=== PATIENT | female | born 1945 | race Caucasian/White ===

== ENCOUNTER 2016-08-15 22:59 | Inpatient (IN) | payer OTHER ==
[~2016-08-15] VITALS: Ht 167.6 cm; Wt 97.5 kg
[2016-08-15 23:06] VITALS: Ht 167.6 cm; Wt 97.5 kg
[2016-08-16] MEDS ORDERED: SOD CHLORIDE 0.9% 500 ML IV STA (00:54)
[2016-08-16] MEDS ORDERED: ONDANSETRON 4 MG INJ IV STA (00:54)
[2016-08-16] MEDS ORDERED: morphine 4 MG/ML VIAL IV STA (00:54)
--- NOTE | 2016-08-16 01:50 | RADRPT ---
PROCEDURE: Abdominal ultrasound, limited. CLINICAL INDICATION: Abdominal pain. TECHNIQUE: Multiple real-time images were acquired of the patient's right upper abdomen utilizing a high resolution transducer. COMPARISON: None FINDINGS: The liver demonstrates increased echogenicity and size measuring 19.7 cm. There is no focal mass or intrahepatic biliary ductal dilatation. The portal vein is patent. The gallbladder is not distend ed. Multiple echogenic gallstones are identified. There is no pericholecystic fluid or gallbladder wall thickening. The common bile duct measures 7.2 mm in maximal dimension. The pancreas is obscu red by overlying bowel gas. No free fluid is identified. The right kidney is normal size and echogenicity measuring cm. There is no focal renal mass or ech ogenic calculus identified. There is no obstructive uropathy. IMPRESSION: Cholelithiasis without ultrasound evidence of cholecystitis. Enlarged liver with fatty infiltration. Mildly dilated common bile duct measuring 7.2 mm. Pancreas obscured by overlying bowel gas. .Deepak Marks MD, Date Time Electronically viewed and signed by .Deepak Marks MD, on 08/16/2016 01:49 .T/
[2016-08-16 02:12] LABS: ADD SCAN DIFF NO
[2016-08-16 02:14] LABS: BASOPHILS % 0.3 % (0.0-2.0); EOSINOPHILS # 0.4 10^3/ul (0.0-0.5); EOSINOPHILS % 4.3 % (0.0-7.0); HEMATOCRIT 44.3 % (37.0-47.0); LYMPHOCYTES # 2.8 10^3/ul (0.8-2.9); LYMPHOCYTES % 29.9 % (15.0-51.0); MEAN CORPUSCULAR HEMOGLOBIN 28.2 pg (29.0-33.0); MEAN CORPUSCULAR HGB CONC 31.6 g/dl (32.0-37.0); MEAN CORPUSCULAR VOLUME 89.1 fl (82.0-101.0); MEAN PLATELET VOLUME 10.1 fl (7.4-10.4); MONOCYTE # 0.8 10^3/ul (0.3-0.9); MONOCYTES % 8.1 % (0.0-11.0); NEUTROPHIL # 5.4 10^3/ul (1.6-7.5); NEUTROPHILS % 57.1 % (39.0-77.0); PLATELET COUNT 308 10^3/UL (140-415); RED BLOOD COUNT 4.97 10^6/ul (4.20-5.40); RED CELL DISTRIBUTION WIDTH 12.8 % (11.5-14.5); WHITE BLOOD COUNT 9.4 10^3/ul (4.8-10.8)
[2016-08-16 02:25] LABS: URINE BILIRUBIN (Dip) NEGATIVE (NEGATIVE); URINE COLOR LT. YELLOW (YELLOW); URINE GLUCOSE (Dip) NEGATIVE (NEGATIVE); URINE KETONES (Dip) NEGATIVE (NEGATIVE); URINE LEUKOCYTE ESTERASE (Dip) NEGATIVE (NEGATIVE); URINE NITRITE (Dip) NEGATIVE (NEGATIVE); URINE TOTAL PROTEIN (Dip) NEGATIVE (NEGATIVE); URINE UROBILINOGEN (Dip) 0.2 E.U./dL (0.1-1.0)
[2016-08-16 02:26] LABS: ADD UMIC NO; URINE BLOOD (Dip) NEGATIVE (NEGATIVE)
[2016-08-16 02:27] LABS: ALBUMIN 4.1 g/dl (3.3-4.9)
[2016-08-16 02:28] LABS: POTASSIUM 4.2 mmol/L (3.5-5.1)
[2016-08-16 02:30] LABS: ALBUMIN/GLOBULIN RATIO 0.97; BILIRUBIN,INDIRECT 0.2 mg/dl (0-1.1); BILIRUBIN,TOTAL 0.2 mg/dl (0.2-1.3); CREATININE 1.06 mg/dl (0.44-1.00); TOTAL PROTEIN 8.3 g/dl (6.1-8.1)
[2016-08-16 02:31] LABS: CALCIUM 9.2 mg/dl (8.4-10.2)
--- NOTE | 2016-08-16 02:43 | ERA ---
ER Documentation Chief Complaint Date/Time DATE: 08/16/16 TIME: 02:42 Chief Complaint RUQ abd pain x 3 days HPI This is a 71-year-old female comes in with right upper quadrant pain for 3 days. Pain is mild to moderate intensity. Patient has history of gallstones. Mild associated nausea. No vomiting. No other current complaints. ROS All systems reviewed and are negative except as per history of present illness. Allergies Allergies: Coded Allergies: No Known Allergy (Unverified , 08/15/16) PMhx/Soc History of Surgery: Yes (Rt knee replacement, 3 stent placed X20 yrs ago, appendectomy) Anesthesia Reaction: No Hx Neurological Disorder: No Hx Respiratory Disorders: No Hx Cardiac Disorders: Yes (HTN, high cholesterol) Hx Psychiatric Problems: No Hx Miscellaneous Medical Probl: Yes (total hysterectomy,gallstones,depression) Hx Alcohol Use: No Hx Substance Use: No Hx Tobacco Use: No Smoking Status: Never smoker Physical Exam Vitals Vital Signs Date Time Temp Pulse Resp B/P Pulse Ox O2 Delivery O2 Flow Rate FiO2 08/16/16 01:27 67 20 133/66 97 Room Air 08/15/16 23:06 98.3 88 20 166/77 100 Physical Exam Const: [] Head: Atraumatic Eyes: Normal Conjunctiva ENT: Normal External Ears, Nose and Mouth. Neck: Full range of motion..~ No meningismus. Resp: Clear to auscultation bilaterally Cardio: Regular rate and rhythm, no murmurs Abd: Soft, non tender, non distended. Normal bowel sounds Skin: No petechiae or rashes Back: No midline or flank tenderness Ext: No cyanosis, or edema Neur: Awake and alert Psych: Normal Mood and Affect Result Diagram: 08/16/16 0204 08/16/16 0204 Results 24 hrs Laboratory Tests Test 08/16/16 01:49 08/16/16 02:04 Urine Color LT. YELLOW Urine Clarity CLEAR Urine pH 5.5 Urine Specific [place] 1.020 Urine Ketones NEGATIVE Urine Nitrite NEGATIVE Urine Bilirubin NEGATIVE Urine Urobilinogen 0.2 E.U./dL Urine Leukocyte Esterase NEGATIVE Urine Hemoglobin NEGATIVE Urine Glucose NEGATIVE% Urine Total Protein NEGATIVE White Blood Count 9.410^3/ul Red Blood Count 4.9710^6/ul Hemoglobin 14.0g/dl Hematocrit 44.3% Mean Corpuscular Volume 89.1fl Mean Corpuscular Hemoglobin 28.2pg Mean Corpuscular Hemoglobin Concent 31.6g/dl Red Cell Distribution Width 12.8% Platelet Count 31269^3/UL Mean Platelet Volume 10.1fl Neutrophils % 57.1% Lymphocytes % 29.9% Monocytes % 8.1% Eosinophils % 4.3% Basophils % 0.3% Nucleated Red Blood Cells % 0.0/100WBC Neutrophils # 5.410^3/ul Lymphocytes # 2.810^3/ul Monocytes # 0.810^3/ul Eosinophils # 0.410^3/ul Basophils # 0.010^3/ul Nucleated Red Blood Cells # 0.010^3/ul Sodium Level 139mmol/L Potassium Level 4.2mmol/L Chloride Level 99mmol/L Carbon Dioxide Level Pending Anion Gap Pending Blood Urea Nitrogen Pending Creatinine Pending Glucose Level Pending Calcium Level Pending Total Bilirubin Pending Direct Bilirubin Pending Indirect Bilirubin Pending Aspartate Amino Transf (AST/SGOT) Pending Alanine Aminotransferase (ALT/SGPT) Pending Alkaline Phosphatase Pending Total Protein Pending Albumin 4.1g/dl Globulin Pending Albumin/Globulin Ratio Pending Lipase Pending Current Medications Medications (Trade) Dose Ordered Sig/Dayo Route PRN Reason Start Time Stop Time Status Last Admin Dose Admin Sodium Chloride (NS) 500 ml @ 500 mls/hr Q1H STAT IV 08/16/16 00:54 08/16/16 01:53 DC 08/16/16 01:59 Morphine Sulfate (morphine) 4 mg ONCE STAT IV 08/16/16 00:54 08/16/16 00:56 DC 08/16/16 01:59 Ondansetron HCl (Zofran Inj) 4 mg ONCE STAT IV 08/16/16 00:54 08/16/16 00:56 DC 08/16/16 01:58 Procedures/MDM Medical decision-making: Patient has evidence of early acute cholecystitis. She will be admitted to Dr. Alvarez. Dr. Zhou it is on-call for surgery and has been consulted Departure Diagnosis: Primary Impression: Acute cholecystitis Condition: Serious VENKAT ALLANTatiana Aug 16, 2016 02:43
[2016-08-16] MEDS ORDERED: morphine 10 MG INJ IM PRN (06:30)
[2016-08-16] MEDS ORDERED: ONDANSETRON 4 MG INJ IV PRN (06:30)
[2016-08-16] MEDS ORDERED: morphine 10 MG INJ IV PRN ×2 (07:00→07:30)
[2016-08-16] MEDS: morphine 2 MG INJ IV PRN ×2 (07:39→21:25)
[2016-08-16 08:45] LABS: AMYLASE 82 U/L (11-123)
[2016-08-16] MEDS ORDERED: NACL 0.9% 3 ML SYG IV SCH (10:00)
[2016-08-16] MEDS ORDERED: MAGNESIUM HYDROXIDE 30ML CUP PO PRN (10:00)
[2016-08-16] MEDS ORDERED: ACETAMINOPHEN 325 MG TAB PO PRN (10:00)
[2016-08-16] MEDS ORDERED: DOCUSATE SODIUM 100 MG CAP PO PRN (10:00)
[2016-08-16] MEDS ORDERED: ATENOLOL 50 MG TAB PO SCH (10:00)
[2016-08-16] MEDS ORDERED: BISACODYL 10 MG SUPP PR PRN (10:00)
[2016-08-16 10:03] LABS: CHOL/HDL RATIO 3.9 RATIO
--- NOTE | 2016-08-16 10:16 | RADRPT ---
Echocardiogram Report Patient Name: MEHRAN JI Gender: Female Date: 1945 Study Date: 16-Aug-2016 Geographic Area Intelligence Officer: Maya Charles [facility] Physician: SHAHRZAD VALENTIN Quality: Good Procedures: Transthoracic echocardiogram with complete 2D, M-Mode, and doppler examination. Indications: Pre-op. 2D/M Mode Doppler Measurement Value Normal Ranges Measurement Value Normal Ranges LVIDd 2D 4.8 3.5 - 5.6 cm AV Peak Selvin 1.3 m/sec LVIDs 2D 2.7 2.1 - 4.1 cm AV Peak PG 6.7 mmHg LVPWd 2D 1.1 0.6 - 1.1 cm LVOT Peak Selvin 1.0 m/sec IVSd 2D 1.1 0.6 - 1.1 cm LVOT Peak PG 3.8 mmHg AoR Diam 2D 2.0 2.0 - 3.7 cm MV E Peak Selvin 0.8 m/sec EDV 2D 107.7 cm3 MV A Peak Selvin 0.6 m/sec ESV 2D 20.7 cm3 MV E/A 1.3 LA Dimen 2D 2.7 2.3 - 4.0 cm MV Decel Time 174 msec MV Decel Pierce 4 MV E/A 1.3 TR Peak Selvin 2.4 m/sec TR Peak PG 23.8 mmHg RVSP 27.0 mmHg Findings Left Ventricle: Normal left ventricular systolic function. Normal left ventricular cavity size. Normal left ventricular wall thickness. Ejection fraction is visually estimated at 65 %. Right Ventricle: Normal right ventricular size. Normal right ventricular systolic function. Left Atrium: The left atrium is normal in size. Right Atrium: The right atrium is normal in size. Mitral Valve: Normal appearance and function of the mitral valve with trace physiologic regurgitation. Aortic Valve: Normal appearance of the aortic valve. Trace aortic valve regurgitation. Tricuspid Valve: Normal appearance and function of the tricuspid valve with trace physiologic regurgitation. Estimated peak PA systolic pressure 27 mmHg. Pulmonic Valve: Normal pulmonic valve appearance. Pericardium: Normal pericardium with no significant pericardial effusion. Aorta: Normal aortic root. IVC: Normal size and normal respiratory collapse consistent with normal right atrial pressure. Conclusions 1.Normal left ventricular systolic function. Normal left ventricular cavity size. Normal left ventricular wall thickness. Ejection fraction is visually estimated at 65 %. 2.Normal appearance and function of the mitral valve with trace physiologic regurgitation. 3.Normal appearance and function of the tricuspid valve with trace physiologic regurgitation. Estimated peak PA systolic pressure 27 mmHg. 4.Normal appearance of the aortic valve. Trace aortic valve regurgitation. Electronically Signed By: Dom Mcmullen 16-Aug-2016 10:16:26 -1800 Patient Name: MEHRAN JI Study Date: 16-Aug-2016 [id number]
[2016-08-16 10:29] LABS: INR 0.9; PARTIAL THROMBOPLASTIN TIME 30.1 Sec (25.0-35.0); PROTIME 12.1 Sec (12.2-14.2); PT RATIO 0.9
--- NOTE | 2016-08-16 11:09 | CONS ---
DATE OF ADMISSION: 08/16/2016 DATE OF CONSULTATION: 08/16/2016 TYPE OF CONSULTATION: Cardiology. REASON FOR CONSULTATION: Cardiovascular preop evaluation. Surgical problem cholelithiasis, very sy mptomatic possible cholecystitis. CHIEF COMPLAINT: Right upper quadrant abdominal pain. HISTORY OF PRESENT ILLNESS: Thank you for this referral. History obtained from the patient, review of the old chart, discussion with Dr. Galarza, discussion with the staff. This is a pleasant 71-year- old female with history of coronary artery disease and possibly PCI in [place] many years ago who came with 3 days of increasing right upper quadrant abdominal pain and discomfort. No fever, no chills. The patient has been diagnosed with severely symptomatic cholelithiasis and has been scheduled for surgery. We were kindly asked to evaluate and treat. The patient denies any chest pain or pressure to me. Her activity is very limited due to her knee pain and overall obesity, but denies any chest pain or pressure to me. PAST MEDICAL HISTORY: History of coronary artery disease, status post PCI in [place] by report many ye ars ago, hypertension, dyslipidemia. History of chronic chest pain. Review of the old chart showed the patient had a Lexiscan, it says in July 2015, which showed gordon l ejection fraction of 80% with normal perfusion. SURGICAL HISTORY: She has had a knee surgery done last year which did not have any cardiac complica tion or anesthesia complication per patient report. MEDICATIONS: As per medical reconciliation sheet, was personally reviewed. REVIEW OF SYSTEMS: The patient has some palpitation; however, currently has significantly improved with the medication. ALLERGIES: NO REPORTED ALLERGIES. SOCIAL HISTORY: The patient does not smoke or drink. Her primary care is Dr. Crawford. REVIEW OF SYSTEMS: Positive for knee pain, otherwise as above-mentioned. PHYSICAL EXAMINATION: VITAL SIGNS: Temperature 98.3, heart rate of 60, blood pressure , respiration rate of 16, satu rating 94 to 97%. HEENT: Normocephalic, atraumatic. Obese female. Pupils are equal. CARDIOVASCULAR: Regular rate and rhythm, systolic murmur. PULMONARY: With no wheezes or rhonchi. GASTROINTESTINAL: Soft, obese, nontender. Positive tenderness to palpation in the right upper quad rant. No rebound or guarding. EXTREMITIES: With trivial lower extremity edema. NEUROLOGIC: Awake and alert. PSYCHIATRIC: Calm, pleasant. LABORATORY: Sodium 139, potassium 4.2, BUN of 26, creatinine 1.06, glucose 116. Cholesterol 205. LDL 117, HDL 52, triglycerides of 179. Lipase was 333. Ultrasound of the gallbladder shows cholelithiasis. EKG showed normal sinus rhythm, no evidence of ischemia. Echocardiogram was personally reviewed, showed normal LV size and systolic function. Echocardiogram today showed ejection fraction 65% with trace aortic insufficiency. Review of the old chart again showed Lexiscan done at [facility] on 08/11/2015, showed ejectio n fraction of 80% with normal perfusion. FAMILY HISTORY: Patient's brother and sister having coronary artery disease. ASSESSMENT AND PLAN: 1. Cardiovascular preop evaluation. 2. Symptomatic cholelithiasis. 3. Hypertension, under good control. 4. History of coronary artery disease, history of PCI, currently asymptomatic with normal stress te st a year ago. 5. Morbid obesity. 6. Hypertension. 7. Dyslipidemia. RECOMMENDATIONS: 1. Current cardiac care including OSMAN inhibitor and beta rukhsana will be continued. Atenolol will be given b.i.d. 2. Aspirin is on hold in anticipation of surgery. 3. We will start the patient on statin as well. 4. The patient is currently optimized from the cardiac standpoint with low to moderate risk of card iovascular event. No further cardiac workup would be indicated. Dictated By: HERLINDA GONG MD AV/NORMAN Conf#: [id number] DID#: [id number] CC: SEAJL GALARZA MD;*EndCC*
[2016-08-16] MEDS: PANTOPRAZOLE 40 MG INJ IV SCH (11:21)
[2016-08-16] MEDS: DEXTROSE 5%-0.9% NACL 1,000 ML IV SCH ×2 (11:21→20:15)
[2016-08-16] MEDS: ATENOLOL 50 MG TAB PO SCH ×2 (11:45→20:15)
--- NOTE | 2016-08-16 11:49 | RADRPT ---
PROCEDURE: XR Chest 1 View. CLINICAL INDICATION: Abnormal breath sounds, preop. TECHNIQUE: AP view of the chest was obtained. COMPARISON: None. FINDINGS: The heart size is within normal limits. Calcified atherosclerosis is noted in the aorta. Mild eleva tion of the right hemidiaphragm is identified. No consolidations are identified. No pneumothorax is seen. Mild interstitial prominence is seen in both lungs. The osseous structures are osteopenic, bu t appear intact. Degenerative changes are seen in the shoulders. IMPRESSION: Calcified atherosclerosis in the aorta. Mild elevation right hemidiaphragm. Mild interstitial prominence in both lungs. Interstitial prominence may be chronic. RPTAT: AA .Nick Nagy MD, Date Time Electronically viewed and signed by .Nick Nagy MD, on 08/16/2016 11:48 .P/
[2016-08-16] MEDS: PIPER-TAZO 3.375 GM IV (PMX) 100 ML IVPB SCH ×3 (12:58→23:14)
--- NOTE | 2016-08-16 13:04 | HP ---
DATE OF ADMISSION: 08/16/2016 CONSULTANTS ON THIS ADMISSION: Mariano North MD from general surgery and Dom cMmullen MD from car diology. HISTORY OF PRESENT ILLNESS: This is a 71-year-old female with history of gallstones disease diagnos ed 1 year ago, coronary artery disease, status post old [place] 22 years ago, hypertension, hyperlipidemi a, who presented to the emergency department with a 3-day history of worsening right upper quadrant abdominal pain. The patient reports that she was diagnosed with gallstone disease at [place] a year ago, but she was fairly asymptomatic at that time; therefore, she did not have anything done for it . However, over the past 3 days, she has been having increasing right upper quadrant pain that areli me worse yesterday after dinner. The patient has been able to eat over the past 3 days. The pain h as been intermittent, again seems to be worse after eating food and yesterday after dinner it went u p to 8/10, was intolerable and she came to the emergency department. On gallbladder ultrasound, she was found to have cholecystitis with no signs of acute cholecystitis, and also a mildly dilated com mon bile duct at 7.2 mm. Her LFTs are within normal. Her lipase is slightly elevated at 333 this m orning. She is having ongoing pain with radiation to the back. She also has a history of cardiac d isease; therefore, per Dr. North he would like cardiology evaluation preoperatively. The patient re ports that she had knee surgery done 6 months ago and she had a preop done by Dr. Dom Mcmullen at at time and was cleared. Therefore, we will follow up with Dr. Mcmullen regarding surgical clearance. Her chest x-ray, PT, PTT and INR are pending. I have discussed the case with Dr. North, we will r echeck her LFTs in the morning for planned surgery. Depending on the LFT results, she may need an M [employer] prior to surgery. Otherwise, for now just a gallbladder ultrasound is diagnostic enough. The p atient denies any chest pain, shortness of breath, nausea or vomiting. She denies any diarrhea or c onstipation. She has been compliant with her medications. ALLERGIES: NO KNOWN ALLERGIES. PAST MEDICAL HISTORY: 1. Gallstone disease diagnosed a year ago. 2. Coronary artery disease, status post old [place] 22 years ago. 3. Hypertension. 4. Hyperlipidemia. PAST SURGICAL HISTORY: 1. Status post cardiac stent placement 22 years ago. 2. Status post appendectomy remotely. 3. Status post right total knee arthroplasty at [facility] by Dr. Mariano Carlton 6 months ago. At that time, again she had a cardiology clearance done. OUTPATIENT MEDICATIONS: 1. Captopril 25 mg p.o. daily. 2. Hydrochlorothiazide 12.5 mg p.o. daily. 3. Atenolol 50 mg p.o. daily. 4. Atorvastatin 20 mg p.o. at bedtime. 5. Citalopram 20 mg daily. 6. Aspirin 81 mg daily. REVIEW OF SYSTEMS: As per HPI. The patient also denies any fevers. PHYSICAL EXAMINATION: VITAL SIGNS: Temperature is 98.3, heart rate of 61 sinus rhythm, respiratory rate 16, blood pressur e 122/67. The patient is saturating 94% on room air. GENERAL: She is alert and oriented x4. She is in slight distress with right upper quadrant pain. She is morbidly obese. HEENT: Pupils are equally round and reactive to light. Extraocular muscles are intact. Anicteric sclerae. NECK: No JVD, no thyromegaly noted. HEART: Regular rate and rhythm. No murmur, rubs, or gallops. LUNGS: Clear to auscultation bilaterally. ABDOMEN: She does have right upper quadrant tenderness to palpation and claims that it is radiating to the back. Bowel sounds are present. Nondistended and soft. EXTREMITIES: No edema, clubbing or cyanosis. NEUROLOGIC: Grossly intact. LABORATORY DATA: White blood cell count is 9.4, hemoglobin 14.0, hematocrit 44.3, platelet count of 208. Chemistry with a sodium of 139, potassium 4.2, chloride 99, bicarbonate 30, BUN 26, creatinin e 1.06, glucose of 116, calcium 9.2, total bilirubin 0.2, AST 23, ALT 21, alkaline phosphatase 112, total protein 8.3, albumin 4.1, amylase 82, lipase 333. Urinalysis is clear. PT, PTT, INR are pend ing. Chest x-ray pending. EKG shows normal sinus rhythm, no acute ST or T-wave abnormalities on presentation. A 2-D echocardi ogram was done this morning. ASSESSMENT AND PLAN: This is a 71-year-old female with: 1. Cholelithiasis, gallstone disease, now with right upper quadrant pain ongoing worsening after fo od. She is currently n.p.o. She is on IV antibiotics. Her ultrasound is not showing acute cholecy stitis, but her symptoms are worrisome. Dr. North will see her later this afternoon. Cardiology al so needs to see her for cardiology evaluation preoperatively and tentatively she may be on the sched ule tomorrow morning for surgery according to Dr. North. Continue pain control and Zofran p.r.n. 2. Coronary artery disease, history of old myocardial infarction 22 years ago; however, she is very stable from the cardiac standpoint currently. We will continue her beta blockers and outpatient me dications for now. Aspirin is on hold for surgery. Cardiology evaluation pending. A 2-D echocardi ogram has been done. 3. Hyperlipidemia. Check fasting lipid panel and will resume atorvastatin postoperatively. 4. Hypertension. Continue current medications except for hydrochlorothiazide. We will continue he r atenolol and captopril. 5. Morbid obesity. Weight loss recommended. 6. Prophylaxis: Sequential compression devices to lower extremities for deep venous thrombosis pro phylaxis. Protonix for GI prophylaxis. DISPOSITION: The patient to remain n.p.o. Continue IV fluids. Cardiology and surgical evaluations are pending with a tentative plan for cholecystectomy in the next 24 hours. Dictated By: SEJAL WALTERS/NORMAN Conf#: [id number] DID#: [id number]
[2016-08-16 14:22] VITALS: BP 110/53; PULSE 61; RESP 20
[2016-08-16] MEDS ORDERED: HYDROCODONE/APAP (5/325) TAB PO PRN (15:30)
[2016-08-16] MEDS ORDERED: CAPT25TA3 PO (15:46)
[2016-08-16] MEDS ORDERED: HYDR12.58 PO (15:47)
[2016-08-16] MEDS ORDERED: ATEN50TA PO (15:48)
[2016-08-16] MEDS ORDERED: ATOR40TA68 PO (15:48)
[2016-08-16] MEDS ORDERED: ASPI-664 PO (15:50)
--- NOTE | 2016-08-16 19:56 | CONS ---
Date/Time of Note Date/Time of Note DATE: 08/16/16 TIME: 19:47 Assessment/Plan Assessment/Plan Chief Complaint/Hosp Course Morbidly obese 71-year-old female with symptomatic cholelithiasis/chronic cholecystitis * Patient continues to have pain requiring IV narcotic pain medication. * At this point I would recommend laparoscopic cholecystectomy; possible open as definitive treatment to prevent further sequelae of gallstone disease which include but are not limited to: Gangrenous cholecystitis, choledocholithiasis, gallstone pancreatitis, ascending cholangitis, etc. * All risks and benefits of the procedure including but not limited to: Wound infection, excessive bleeding, common bile duct injury, postoperative biliary leak, retained common bile duct stone, injury to intra-abdominal organs, conversion to open procedure etc. were all explained to the patient and her son in full detail. They fully understand and agreed to surgical intervention. * Patient has been cleared by cardiology for surgery. * She may have clear liquids tonight with nothing by mouth after midnight * Will schedule for surgery tomorrow Problems: Consultation Date/Type/Reason Admit Date/Time Aug 16, 2016 at 02:12 Date of Consultation: Aug 16, 2016 Type of Consultation: GENERAL SURGERY Reason for Consultation Abdominal pain Hx of Present Illness The patient is a morbidly obese 71-year-old female with history of gallstones disease diagnosed 1 year ago, coronary artery disease, status post old NC 22 years ago and stent placement, hypertension, hyperlipidemia, who presented to the emergency department with a 3-day history of worsening right upper quadrant abdominal pain. The patient was diagnosed with gallstone disease at [facility] a year ago, but did not pursue surgical intervention at that time. Over the past 3 days, she has been having increasing right upper quadrant pain that became worse yesterday after dinner. The pain has been intermittent. She denies any nausea/vomiting, diarrhea/constipation or fever/chills. On arrival to the emergency room a gallbladder ultrasound showed cholelithiasis without evidence of acute cholecystitis. Her LFTs are within normal limits. Her lipase is slightly elevated at 333 this morning. Currently she states she is still having mild right upper quadrant abdominal pain. She is requiring IV narcotic pain medication. A 14 point review of systems conducted and was negative except for that which is mentioned in history of present illness Past Medical History 1. Gallstone disease diagnosed a year ago. 2. Coronary artery disease, status post old NC 22 years ago. 3. Hypertension. 4. Hyperlipidemia. Past Surgical History 1. Status post cardiac stent placement 22 years ago. 2. Status post appendectomy. 3. Status post hysterectomy for fibroids. 4. Status post right total knee arthroplasty. Family History Significant Family History: no pertinent family hx Social History Smoking Status: Never smoker Exam/Review of Systems Vital Signs Vitals Vital Signs Date Time Temp Pulse Resp B/P Pulse Ox O2 Delivery O2 Flow Rate FiO2 08/16/16 14:22 98.0 61 20 110/53 95 Room Air Exam GENERAL: Morbidly obese Urdu female who is Awake, alert, oriented 3. No acute distress. SKIN: No jaundice. HEENT: PERRLA, EOMI, No Scleral Icterus NECK: Supple without JVD CARDIOVASCULAR: S1S2, regular rate and rhythm. No murmurs appreciated. RESPIRATORY: Clear to auscultation bilaterally. ABDOMEN: Obese, Soft, bowel sounds present, nondistended, there is right upper quadrant tenderness to palpation without any evidence of rebound or guarding. EXTREMITIES: Free range of motion 4. No cyanosis, edema, or clubbing. NEUROLOGIC: Cranial nerves II-XII are intact. Sensation is intact grossly. Results Result Diagram: 08/16/16 0204 08/16/16 0204 Results 24 hrs Laboratory Tests Test 08/16/16 01:49 08/16/16 02:04 08/16/16 10:09 Urine Color LT. YELLOW Urine Clarity CLEAR Urine pH 5.5 Urine Specific [place] 1.020 Urine Ketones NEGATIVE Urine Nitrite NEGATIVE Urine Bilirubin NEGATIVE Urine Urobilinogen 0.2 E.U./dL Urine Leukocyte Esterase NEGATIVE Urine Hemoglobin NEGATIVE Urine Glucose NEGATIVE Urine Total Protein NEGATIVE White Blood Count 9.4 Red Blood Count 4.97 Hemoglobin 14.0 Hematocrit 44.3 Mean Corpuscular Volume 89.1 Mean Corpuscular Hemoglobin 28.2 L Mean Corpuscular Hemoglobin Concent 31.6 L Red Cell Distribution Width 12.8 Platelet Count 308 Mean Platelet Volume 10.1 Neutrophils % 57.1 Lymphocytes % 29.9 Monocytes % 8.1 Eosinophils % 4.3 Basophils % 0.3 Nucleated Red Blood Cells % 0.0 Neutrophils # 5.4 Lymphocytes # 2.8 Monocytes # 0.8 Eosinophils # 0.4 Basophils # 0.0 Nucleated Red Blood Cells # 0.0 Sodium Level 139 Potassium Level 4.2 Chloride Level 99 Carbon Dioxide Level 30 Anion Gap 14 Blood Urea Nitrogen 26 H Creatinine 1.06 H Glucose Level 116 Calcium Level 9.2 Total Bilirubin 0.2 Direct Bilirubin 0.00 Indirect Bilirubin 0.2 Aspartate Amino Transf (AST/SGOT) 23 Alanine Aminotransferase (ALT/SGPT) 21 Alkaline Phosphatase 112 Total Protein 8.3 H Albumin 4.1 Globulin 4.20 H Albumin/Globulin Ratio 0.97 Triglycerides Level 179 H Cholesterol Level 205 H LDL Cholesterol, Calculated 117 HDL Cholesterol 52 Cholesterol/HDL Ratio 3.9 Amylase Level 82 Lipase 333 H Prothrombin Time 12.1 L Prothrombin Time Ratio 0.9 INR International Normalized Ratio 0.90 Activated Partial Thromboplast Time 30.1 Medications Medications Current Medications Influenza Virus Vaccine 0.5 ml 0.5 ml ONCE ONCE IM* ; Start 08/17/16 at 09:00; Stop 08/17/16 at 09:01 Piperacillin Sod/ Tazobactam Sod (Zosyn 3.375gm/ 100 ml (Pmx)) 100 ml @ 200 mls /hr Q6 IVPB Last administered on 08/16/16 17:38; Admin Dose 200 MLS/HR; Start 08/16/16 at 12:00 Ondansetron HCl (Zofran Inj) 4 mg Q6H PRN IV NAUSEA AND/OR VOMITING; Start at 06:30 Morphine Sulfate (morphine) 2 mg Q3 PRN IV pain Last administered on 08/16/16 07:39; Admin Dose 2 MG; Start 08/16/16 at 07:30 Acetaminophen (Tylenol Tab) 650 mg Q6H PRN PO PAIN LEVEL 1-3 OR FEVER Last administered on 08/16/16 11:45; Admin Dose 650 MG; Start 08/16/16 at 10:00 Docusate Sodium (Colace) 100 mg Q12H PRN PO CONSTIPATION; Start 08/16/16 at 10: 00 Magnesium Hydroxide (Milk Of Mag) 30 ml DAILY PRN PO CONSTIPATION; Start at 10:00 Bisacodyl 10 mg 10 mg DAILY PRN [place] CONSTIPATION; Start 08/16/16 at 10:00 Dextrose/Sodium Chloride (D5-NS) 1,000 ml @ 100 mls/hr Q10H IV Last administered on 08/16/16 11:21; Admin Dose 100 MLS/HR; Start 08/16/16 at 10:00 Pantoprazole (Protonix Iv) 40 mg DAILY IV Last administered on 08/16/16 11:21 ; Admin Dose 40 MG; Start 08/16/16 at 10:30 Atenolol (Tenormin) 50 mg BID PO Last administered on 08/16/16 11:45; Admin Dose 50 MG; Start 08/16/16 at 12:00 Atorvastatin Calcium (Lipitor) 40 mg HS PO ; Start 08/16/16 at 21:00 Lisinopril (Zestril) 20 mg DAILY PO ; Start 08/17/16 at 09:00 Acetaminophen/ Hydrocodone Bitart ([place] (5/325)) 1 tab Q4H PRN PO PAIN; Start 08/16/16 at 15:30 Procedures Procedures PROCEDURE: Abdominal ultrasound, limited. CLINICAL INDICATION: Abdominal pain. TECHNIQUE: Multiple real-time images were acquired of the patient's right upper abdomen utilizing a high resolution transducer. COMPARISON: None FINDINGS: The liver demonstrates increased echogenicity and size measuring 19.7 cm. There is no focal mass or intrahepatic biliary ductal dilatation. The portal vein is patent. The gallbladder is not distended. Multiple echogenic gallstones are identified. There is no pericholecystic fluid or gallbladder wall thickening. The common bile duct measures 7.2 mm in maximal dimension. The pancreas is obscured by overlying bowel gas. No free fluid is identified. The right kidney is normal size and echogenicity measuring cm. There is no focal renal mass or echogenic calculus identified. There is no obstructive uropathy. IMPRESSION: Cholelithiasis without ultrasound evidence of cholecystitis. Enlarged liver with fatty infiltration. Mildly dilated common bile duct measuring 7.2 mm. Pancreas obscured by overlying bowel gas. .Deepak Marks MD, MD Date Time Electronically viewed and signed by .Deepak Marks MD, MD on 08/16/2016 01:49 .T/ CC: VENKAT ALLAN MICHAEL A. MD Aug 16, 2016 19:56
[2016-08-16] MEDS: ATORVASTATIN 40 MG TAB PO SCH (20:16)
[2016-08-16 20:52] VITALS: BP 114/55; RESP 20
[2016-08-17] VITALS (15 sets, daily range): BP systolic 103–123; BP diastolic 51–78; PULSE 68–84; RESP 14–22
[2016-08-17] MEDS: PIPER-TAZO 3.375 GM IV (PMX) 100 ML IVPB SCH ×2 (05:00→13:46)
[2016-08-17] MEDS: DEXTROSE 5%-0.9% NACL 1,000 ML IV SCH ×2 (05:01→12:02)
[2016-08-17 05:55] LABS: ADD SCAN DIFF NO
[2016-08-17] MEDS ORDERED: PANTOPRAZOLE (EC) 40 MG TAB PO SCH (06:00)
[2016-08-17 06:12] LABS: BASOPHILS % 0.5 % (0.0-2.0); EOSINOPHILS # 0.2 10^3/ul (0.0-0.5); EOSINOPHILS % 4.1 % (0.0-7.0); HEMOGLOBIN 13.5 g/dl (12.0-16.0); LYMPHOCYTES # 1.6 10^3/ul (0.8-2.9); LYMPHOCYTES % 27.4 % (15.0-51.0); MEAN CORPUSCULAR HEMOGLOBIN 29.2 pg (29.0-33.0); MEAN CORPUSCULAR HGB CONC 32.1 g/dl (32.0-37.0); MEAN CORPUSCULAR VOLUME 90.9 fl (82.0-101.0); MEAN PLATELET VOLUME 10.1 fl (7.4-10.4); MONOCYTE # 0.5 10^3/ul (0.3-0.9); NEUTROPHIL # 3.3 10^3/ul (1.6-7.5); NEUTROPHILS % 58.6 % (39.0-77.0); PLATELET COUNT 277 10^3/UL (140-415); RED BLOOD COUNT 4.62 10^6/ul (4.20-5.40); RED CELL DISTRIBUTION WIDTH 12.8 % (11.5-14.5); WHITE BLOOD COUNT 5.7 10^3/ul (4.8-10.8)
[2016-08-17 06:34] LABS: ALBUMIN 3.4 g/dl (3.3-4.9)
[2016-08-17 06:35] LABS: POTASSIUM 4.4 mmol/L (3.5-5.1)
[2016-08-17 06:37] LABS: ALBUMIN/GLOBULIN RATIO 0.97; BILIRUBIN,INDIRECT 0.4 mg/dl (0-1.1); BILIRUBIN,TOTAL 0.4 mg/dl (0.2-1.3); CREATININE 0.92 mg/dl (0.44-1.00); TOTAL PROTEIN 6.9 g/dl (6.1-8.1)
[2016-08-17 06:38] LABS: MAGNESIUM 1.8 mg/dl (1.7-2.5); PHOSPHORUS 3.8 mg/dl (2.5-4.9)
[2016-08-17 06:44] LABS: AMYLASE 75 U/L (11-123)
[2016-08-17] MEDS ORDERED: INFLUENZA VIRUS VACCINE 0.5 ML (DISPENSING) IM* ONE (09:00)
[2016-08-17] MEDS: PANTOPRAZOLE 40 MG INJ IV SCH (09:32)
[2016-08-17] MEDS: LISINOPRIL 20 MG TAB PO SCH (09:32)
[2016-08-17] MEDS: ATENOLOL 50 MG TAB PO SCH ×2 (09:32→21:00)
--- NOTE | 2016-08-17 10:05 | PN ---
DATE: 08/17/2016 CARDIOLOGY FOLLOWUP PROGRESS NOTE SUBJECTIVE: Discussed with the staff. Patient with no chest pain or pressure. Patient has more ab dominal pain this morning, but currently is better. No chest pain or pressure, no shortness of cristal th, no PND, no orthopnea. MEDICATIONS: Reviewed as per medication reconciliation, was personally reviewed. PHYSICAL EXAMINATION: VITAL SIGNS: Temperature 98.5, heart rate of 61, blood pressure 118/58, respiration rate of 18. HEENT: Normocephalic, atraumatic. Pupils are equal. CARDIOVASCULAR: Regular rhythm, systolic murmur. PULMONARY: With no wheezes or rhonchi. GASTROINTESTINAL: Soft, mild tenderness to palpation right upper quadrant. No rebound or guarding. EXTREMITIES: No significant edema. NEUROLOGIC: Awake and alert. PSYCHIATRIC: Calm, pleasant. LABORATORY: WBC of 5.7, hemoglobin 13.5, platelets 277. Sodium 141, potassium 4.4, BUN of 15, crea tinine 0.92, glucose 118, LDL 117. Cholesterol 205, HDL of 52. ASSESSMENT AND PLAN: 1. Cardiovascular preop evaluation. 2. Hypertension. 3. Coronary artery disease. 4. Cholelithiasis. 5. Abdominal pain secondary to above. RECOMMENDATIONS: We will continue with the current cardiac care including beta rukhsana and OSMAN inhi bitor. The patient is currently optimized from this cardiac standpoint for the above surgery with l ow to moderate risk of cardiovascular event. No further cardiac workup would be indicated. Dictated By: HERLINDA GONG MD AV/NORMAN Conf#: [id number] DID#: [id number] CC: SEJAL GALARZA MD;*[facility]*
--- NOTE | 2016-08-17 10:48 | PN ---
Date/Time of Note Date/Time of Note DATE: 08/17/16 TIME: 10:42 Assessment/Plan VTE Prophylaxis VTE Prophylaxis Intervention: SCD's Lines/Catheters IV Catheter Type (from Nrsg): Peripheral IV Assessment/Plan Assessment/Plan 71-year-old female with: 1. Cholelithiasis, gallstone disease, and likely chronic cholecystitis per Gen Surg NPO, IVF abd IV abx Lap nicho today Appreciate Cardiology eval. Patient considered low to moderate risk of cardiovascular event Off ASA. Continue pain control and Zofran p.r.n. 2. Coronary artery disease, history of old myocardial infarction 22 years ago; however, she is very stable from the cardiac standpoint currently. Continue her beta blockers and outpatient medications for now. Aspirin is on hold for surgery. 2-D echocardiogram stable Low to moderate risk of cardiovascular event 3. Hyperlipidemia. Continue atorvastatin postoperatively. 4. Hypertension. Appreciate adjustments per Cardiology. On Atenolol and Lisinopril here. 5. Morbid obesity. Weight loss recommended. Prophylaxis: Sequential compression devices to lower extremities for deep venous thrombosis prophylaxis. Protonix for GI prophylaxis. DISPOSITION: n.p.o., IV fluids, Planning for Lap Nicho this afternoon with Dr North Subjective 24 Hr Interval Summary Free Text/Dictation Patient remains stable and plan for Lap nicho this afternoon Exam/Review of Systems Vital Signs Vitals Vital Signs Date Time Temp Pulse Resp B/P Pulse Ox O2 Delivery O2 Flow Rate FiO2 08/17/16 07:51 98.5 61 18 118/58 92 08/16/16 14:22 Room Air Intake and Output 08/16/16 08/16/16 08/17/16 15:00 23:00 07:00 Intake Total 100 ml 550 ml 1630 ml Output Total 950 ml 800 ml Balance 100 ml -400 ml 830 ml Exam Constitutional: alert, obese, oriented, well developed Respiratory: clear to auscultation, normal air movement Cardiovascular: regular rate and rhythm Gastrointestinal: soft, tender (RUQ) Musculoskeletal: nl extremities to inspection Extremities: normal pulses, other (no edema, clubbing or cyanosis ) 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, nl mental status, nl speech, nl strength Results Result Diagram: 08/17/16 0455 08/17/16 0455 Results 24 hrs Laboratory Tests Test 08/17/16 04:55 White Blood Count 5.7 # Red Blood Count 4.62 Hemoglobin 13.5 Hematocrit 42.0 Mean Corpuscular Volume 90.9 Mean Corpuscular Hemoglobin 29.2 Mean Corpuscular Hemoglobin Concent 32.1 Red Cell Distribution Width 12.8 Platelet Count 277 Mean Platelet Volume 10.1 Neutrophils % 58.6 Lymphocytes % 27.4 Monocytes % 9.0 Eosinophils % 4.1 Basophils % 0.5 Nucleated Red Blood Cells % 0.0 Neutrophils # 3.3 Lymphocytes # 1.6 Monocytes # 0.5 Eosinophils # 0.2 Basophils # 0.0 Nucleated Red Blood Cells # 0.0 Sodium Level 141 Potassium Level 4.4 Chloride Level 104 Carbon Dioxide Level 32 H Anion Gap 9 # Blood Urea Nitrogen 15 # Creatinine 0.92 Glucose Level 118 Calcium Level 9.0 Phosphorus Level 3.8 Magnesium Level 1.8 Total Bilirubin 0.4 Direct Bilirubin 0.00 Indirect Bilirubin 0.4 Aspartate Amino Transf (AST/SGOT) 33 Alanine Aminotransferase (ALT/SGPT) 38 Alkaline Phosphatase 80 Total Protein 6.9 # Albumin 3.4 Globulin 3.50 H Albumin/Globulin Ratio 0.97 Amylase Level 75 Lipase 289 Medications Medications Current Medications Piperacillin Sod/ Tazobactam Sod (Zosyn 3.375gm/ 100 ml (Pmx)) 100 ml @ 200 mls /hr Q6 IVPB Last administered on 08/17/16 05:00; Admin Dose 200 MLS/HR; Start 08/16/16 at 12:00 Ondansetron HCl (Zofran Inj) 4 mg Q6H PRN IV NAUSEA AND/OR VOMITING; Start at 06:30 Morphine Sulfate (morphine) 2 mg Q3 PRN IV pain Last administered on 08/16/16 21:25; Admin Dose 2 MG; Start 08/16/16 at 07:30 Acetaminophen (Tylenol Tab) 650 mg Q6H PRN PO PAIN LEVEL 1-3 OR FEVER Last administered on 08/16/16 11:45; Admin Dose 650 MG; Start 08/16/16 at 10:00 Docusate Sodium (Colace) 100 mg Q12H PRN PO CONSTIPATION; Start 08/16/16 at 10: 00 Magnesium Hydroxide (Milk Of Mag) 30 ml DAILY PRN PO CONSTIPATION; Start at 10:00 Bisacodyl 10 mg 10 mg DAILY PRN [place] CONSTIPATION; Start 08/16/16 at 10:00 Dextrose/Sodium Chloride (D5-NS) 1,000 ml @ 100 mls/hr Q10H IV Last administered on 08/17/16 05:01; Admin Dose 100 MLS/HR; Start 08/16/16 at 10:00 Pantoprazole (Protonix Iv) 40 mg DAILY IV Last administered on 08/17/16 09:32 ; Admin Dose 40 MG; Start 08/16/16 at 10:30 Atenolol (Tenormin) 50 mg BID PO Last administered on 08/17/16 09:32; Admin Dose 50 MG; Start 08/16/16 at 12:00 Atorvastatin Calcium (Lipitor) 40 mg HS PO Last administered on 08/16/16 20:16 ; Admin Dose 40 MG; Start 08/16/16 at 21:00 Lisinopril (Zestril) 20 mg DAILY PO Last administered on 08/17/16 09:32; Admin Dose 20 MG; Start 08/17/16 at 09:00 Acetaminophen/ Hydrocodone Bitart ([place] (5/325)) 1 tab Q4H PRN PO PAIN; Start 08/16/16 at 15:30 SEJAL GALARZA Aug 17, 2016 10:48
--- NOTE | 2016-08-17 14:58 | RADRPT ---
Vent Rate: 68 bpm RR Interval: 0 msec GA Interval: 168 msec QRS Duration: 82 msec QT Interval: 410 msec QTC Interval: 435 msec P-R-T [place]: 50 - 29 - 66 degrees Normal sinus rhythm Normal ECG Electronically Signed By: Mariano Frias [id number]
--- NOTE | 2016-08-17 16:29 | HPN ---
Date/Time of Note Date/Time of Note DATE: 08/17/16 TIME: 16:28 Interval H&P Admission Note Pt. seen H&P reviewed: No system changes LUIS ALBERTO AGUILLON MD Aug 17, 2016 16:28
[2016-08-17] MEDS ORDERED: ETOMIDATE 20 MG INJ ONE (16:57)
[2016-08-17] MEDS ORDERED: PHENYLephrine (100 MCG/ML) 5ML SYG ONE ×2 (16:57→18:50)
[2016-08-17] MEDS ORDERED: ROCURONIUM 50 MG INJ ONE (16:57)
[2016-08-17] MEDS ORDERED: PROPOFOL 20 ML ONE (16:57)
[2016-08-17] MEDS ORDERED: FENTAnyl 50 MCG/ML VIAL ONE (17:31)
[2016-08-17] MEDS ORDERED: hydrALAzine 20 MG INJ ONE (17:34)
[2016-08-17] MEDS ORDERED: FAMOTIDINE 20 MG INJ ONE (17:55)
[2016-08-17] MEDS ORDERED: ONDANSETRON 4 MG INJ ONE (17:55)
[2016-08-17] MEDS ORDERED: DEXAMETHASONE 4 MG/ML 1 ML INJ ONE (17:55)
[2016-08-17] MEDS: BUPIVACAINE 0.25% (MPF) 30 ML INJ ONE ×2 (17:57→18:58)
[2016-08-17] MEDS ORDERED: HYDROmorphONE (0.2 MG/ML) 10ML SYG IV PRN ×2 (18:00)
[2016-08-17] MEDS ORDERED: MEPERIDINE 25 MG INJ IV PRN (18:00)
[2016-08-17] MEDS ORDERED: LABETALOL HCL 20MG INJ IV PRN (18:00)
[2016-08-17] MEDS ORDERED: hydrALAzine 20 MG INJ IV PRN (18:00)
[2016-08-17] MEDS ORDERED: ONDANSETRON 4 MG INJ IV PRN (18:00)
[2016-08-17] MEDS ORDERED: ROPIVACAINE 0.2% 20 ML VIAL ONE (18:09)
[2016-08-17] MEDS ORDERED: GLYCOPYRROLATE 0.4 MG INJ ONE (18:12)
[2016-08-17] MEDS ORDERED: NEOSTIGMINE 3 MG/3 ML SYRINGE ONE (18:12)
[2016-08-17] MEDS ORDERED: HYDROCODONE/APAP (5/325) TAB PO PRN (19:30)
[2016-08-17] MEDS ORDERED: HYDROCODONE/APAP (10/325) TAB PO PRN (19:30)
[2016-08-17] MEDS: morphine 2 MG INJ IV PRN (20:43)
--- NOTE | 2016-08-17 21:34 | OPR ---
DATE OF OPERATION: 08/17/2016 PREOPERATIVE DIAGNOSES: 1. Symptomatic cholelithiasis. 2. Chronic cholecystitis. POSTOPERATIVE DIAGNOSES: 1. Symptomatic cholelithiasis. 2. Active chronic cholecystitis. OPERATION PERFORMED: Laparoscopic cholecystectomy (modifier 22). SURGEON: Mariano North MD BLOW MOLDER: None. ANESTHESIA: General endotracheal. ANESTHESIOLOGIST: Job Castillo DO FLUIDS: Crystalloid. ESTIMATED BLOOD LOSS: Minimal. SPECIMEN: Gallbladder. INDICATIONS FOR SURGERY: The patient is a morbidly obese 71-year-old female with a known history of gallstone disease who presented with a 3-day history of intermittent, but severe, right upper quadrant abdominal pain. The patient had an ultrasound, which showed presence of gallstones without any evidence of acute cholecystitis. She was admitted for narcotic pain control. However, her pain failed to improve and she required consistent with IV narcotic pain medication. It was therefore recommended to undergo laparoscopic cholecystectomy, possible open, as definitive treatment to prevent further sequelae of gallstone disease, which include but are not limited to acute cholecystitis, gallstone pancreatitis, choledocholithiasis, ascending cholangitis, etc. All risks and benefits of the procedure including but not limited to wound infection, excessive bleeding, common bile duct injury, postoperative biliary leak, retained common bile duct stone, conversion to open procedure, injury to intraabdominal organs, etc. were all explained to the patient and her son in full detail. They fully understood and wished to proceed with the procedure. Informed consent was obtained. The patient was cleared by cardiology prior to the procedure. PROCEDURE IN DETAIL: The patient was brought to the operating room and placed supine on the operating table. Bilateral sequential compression devices were placed on both lower extremities. The patient had been maintained on broad spectrum intravenous antibiotics while an inpatient on the floor. After the induction of smooth general endotracheal anesthesia, the patient's abdomen was prepped and draped in standard surgical fashion. After performance of a surgical time-out, a 5 mm incision was made inferior to the umbilicus and a Veress needle was used to access the intraabdominal cavity atraumatically. Pneumoperitoneum was then obtained and the Veress needle was exchanged for a 5 mm trocar through which a 5 mm 0-degree laparoscope was placed. Three further working ports were then placed, a 12 mm port in the subxiphoid region and two 5 mm ports in the right upper quadrant. All port sites were anesthetized with 0.25% Marcaine prior to incision. Diagnostic laparoscopy showed a lot of intraabdominal fat. Hepatomegaly was identified with fatty infiltration of the liver. A massively enlarged and distended gallbladder was identified in the right upper quadrant. In order to gain better visualization for the procedure, the 0 degree 5 mm laparoscope was exchanged for a 30-degree 5 mm laparoscope. Using atraumatic graspers, the gallbladder was then grasped and retracted superiorly and laterally exposing the area of [place] pouch. Dissection was begun in this area using combination of blunt dissection and hook electrocautery. There was dense chronic scar tissue in the area, likely from prior attacks of biliary colic and chronic cholecystitis. Tedious dissection was done and a dilated cystic duct was identified entering straight into the neck of the gallbladder. It was dissected free of surrounding tissues and then transected using a laparoscopic KENYATTA stapler. Dissection was then continued posteriorly and a short cystic artery was identified from its takeoff from the right hepatic artery. It was dissected free of surrounding tissues, was clipped proximally and distally, and transected using EndoShears. Dissection was then continued, dissecting the gallbladder off the liver bed using hook electrocautery. Once completely freed, the gallbladder was placed in an EndoCatch bag and withdrawn through the 12 mm port site, which had to be enlarged to accommodate the large size gallbladder. Once partially delivered through the subxiphoid incision, it was then decompressed using a decompressing needle connected to suction to better facilitate its extraction without having to further enlarge the incision. This was done successfully and the gallbladder was passed off the field as specimen. The abdomen was then irrigated with copious amounts of warm saline and the irrigant returned clear. Fibrillar was placed in the gallbladder bed to aid in hemostasis. Hemostasis was noted to be adequate. The fascia of the subxiphoid port site was then reapproximated using EndoClose device and 0 Vicryl sutures in interrupted fashion. Pneumoperitoneum was then released and all remaining trocars were withdrawn under direct vision. Further local anesthesia was applied around the skin of the incision sites. The subcutaneous tissues were irrigated with more warm normal saline. The skin of the incision sites was then reapproximated using skin lucho. The incisions were clean and sterile dressings were applied. The patient was then awoken from anesthesia and transported to recovery room in stable condition. All counts were correct at the end of case x2. Due to the patient's morbid obesity and degree of chronic inflammation, this procedure involved substantial technical difficulty requiring technical skill and time that was in excess of that which is usual and customary for a procedure of this type. Therefore, modifier 22 should be applied. Dictated By: MARIANO HECTOR/NORMAN Conf#: [id number] DID#: [id number] CC: SHAHRZAD VALENTIN MD;*EndCC* MTDD
[2016-08-17] MEDS: ATORVASTATIN 40 MG TAB PO SCH (21:40)
[2016-08-17] MEDS: DOCUSATE SODIUM 100 MG CAP PO SCH (21:40)
[2016-08-18] VITALS (14 sets, daily range): BP systolic 69–132; BP diastolic 41–70; PULSE 60–74; RESP 18–20
[2016-08-18] MEDS: morphine 2 MG INJ IV PRN (00:56)
[2016-08-18] MEDS: DEXTROSE 5%-0.9% NACL 1,000 ML IV SCH ×2 (02:57→12:00)
[2016-08-18 05:16] LABS: ADD SCAN DIFF NO
[2016-08-18 05:28] LABS: BASOPHILS % 0.1 % (0.0-2.0); HEMATOCRIT 40.2 % (37.0-47.0); HEMOGLOBIN 12.7 g/dl (12.0-16.0); LYMPHOCYTES # 0.9 10^3/ul (0.8-2.9); LYMPHOCYTES % 8.7 % (15.0-51.0); MEAN CORPUSCULAR HEMOGLOBIN 28.9 pg (29.0-33.0); MEAN CORPUSCULAR HGB CONC 31.6 g/dl (32.0-37.0); MEAN CORPUSCULAR VOLUME 91.6 fl (82.0-101.0); MEAN PLATELET VOLUME 10.3 fl (7.4-10.4); MONOCYTE # 0.4 10^3/ul (0.3-0.9); MONOCYTES % 4.4 % (0.0-11.0); NEUTROPHIL # 8.7 10^3/ul (1.6-7.5); NEUTROPHILS % 86.5 % (39.0-77.0); PLATELET COUNT 276 10^3/UL (140-415); RED BLOOD COUNT 4.39 10^6/ul (4.20-5.40); RED CELL DISTRIBUTION WIDTH 12.6 % (11.5-14.5); WHITE BLOOD COUNT 10.1 10^3/ul (4.8-10.8)
[2016-08-18 05:31] LABS: ALBUMIN 3.1 g/dl (3.3-4.9)
[2016-08-18 05:32] LABS: POTASSIUM 4.4 mmol/L (3.5-5.1)
[2016-08-18 05:33] LABS: PHOSPHORUS 4.7 mg/dl (2.5-4.9)
[2016-08-18 05:34] LABS: MAGNESIUM 1.6 mg/dl (1.7-2.5)
[2016-08-18 05:34] LABS: ALBUMIN/GLOBULIN RATIO 0.91; BILIRUBIN,INDIRECT 0.2 mg/dl (0-1.1); BILIRUBIN,TOTAL 0.2 mg/dl (0.2-1.3); CREATININE 0.92 mg/dl (0.44-1.00); TOTAL PROTEIN 6.5 g/dl (6.1-8.1)
[2016-08-18 05:35] LABS: CALCIUM 8.7 mg/dl (8.4-10.2)
[2016-08-18] MEDS: PANTOPRAZOLE 40 MG INJ IV SCH (08:42)
[2016-08-18] MEDS: DOCUSATE SODIUM 100 MG CAP PO SCH ×2 (08:42→20:29)
[2016-08-18] MEDS: LISINOPRIL 20 MG TAB PO SCH (08:43)
[2016-08-18] MEDS: ATENOLOL 50 MG TAB PO SCH (08:43)
--- NOTE | 2016-08-18 08:50 | PN ---
DATE: 08/18/2016 CARDIOLOGY FOLLOWUP SUBJECTIVE: The patient underwent laparoscopic cholecystectomy yesterday. Uneventful with no cardi ac complications. Denies any chest pain or pressure to me. Denies shortness of breath to me. He h as minimal abdominal discomfort at the site of the incision. Otherwise, his right upper quadrant ab dominal pain has resolved now. He wants to eat. MEDICATIONS: Reviewed. PHYSICAL EXAMINATION: VITAL SIGNS: Temperature 98.2, heart rate of 78, blood pressure 101/52, respiration rate of 78, sat urating 97%. HEENT: Normocephalic, atraumatic, obese female. Pupils are equal. CARDIOVASCULAR: Regular rate and rhythm, systolic murmur. PULMONARY: With no wheezes, no rhonchi. GASTROINTESTINAL: Soft, mild tenderness to palpation at the site of incision. No rebound or guardi ng. EXTREMITIES: No significant lower extremity edema. NEUROLOGIC: Awake and alert, oriented. PSYCHIATRIC: Appeared to be calm and very pleasant. No bleeding sign. LABORATORY: WBC of 10.1, hemoglobin 12.7, platelets of 276. Sodium 142, potassium 4.4, BUN of 14, creatinine 0.92, glucose 176. Mag is 1.6. ASSESSMENT AND PLAN: 1. Symptomatic cholelithiasis. 2. Status post laparoscopic cholecystectomy. 3. Cardiovascular preop evaluation: History of hypertension and history of coronary artery disease . 4. Electrolyte abnormalities. 5. Hypertension. RECOMMENDATIONS: Will replace the magnesium. We will continue with the rest of her cardiac care. Aspirin to be resumed once okay from a surgical standpoint. Postop care to be continued. Dictated By: HERLINDA GONG MD AV/NORMAN Conf#: [id number] DID#: [id number] CC: SEJAL GALARZA MD;*EndCC*
--- NOTE | 2016-08-18 08:52 | PN ---
Date/Time of Note Date/Time of Note DATE: 08/18/16 TIME: 08:49 Assessment/Plan Lines/Catheters IV Catheter Type (from Nrs): Peripheral IV Assessment/Plan Assessment/Plan Morbidly obese 71-year-old female status post laparoscopic cholecystectomy postop day #1 * Doing well clinically * LFTs are okay * Advance diet as tolerated * Out of bed/incentive spirometry * Surgically stable for discharge home when medically cleared * Follow-up in office in 1-2 weeks Subjective 24 Hr Interval Summary Doing well. Pain is controlled. Afebrile. Exam/Review of Systems Vital Signs Vitals Vital Signs Date Time Temp Pulse Resp B/P Pulse Ox O2 Delivery O2 Flow Rate FiO2 08/18/16 07:59 98.2 78 18 88/52 97 08/18/16 04:00 Room Air 08/18/16 00:00 2.0 Intake and Output 08/17/16 08/17/16 08/18/16 15:00 23:00 07:00 Intake Total 800 ml 1350 ml 200 ml Output Total 620 ml 500 ml Balance 800 ml 730 ml -300 ml Exam Free Text/Dictation GENERAL: Morbidly obese [place] female who is Awake, alert, oriented 3. No acute distress. SKIN: No jaundice. HEENT: PERRLA, EOMI, No Scleral Icterus CARDIOVASCULAR: S1S2, regular rate and rhythm. No murmurs appreciated. RESPIRATORY: Clear to auscultation bilaterally. ABDOMEN: Obese, Soft, bowel sounds present, nondistended, nontender to palpation INCISIONS: Dressings are clean, dry, intact EXTREMITIES: Free range of motion 4. No cyanosis, edema, or clubbing. Results Result Diagram: 08/18/16 0418 08/18/16 0415 LUIS ALBERTO AGUILLON MD Aug 18, 2016 08:52
[2016-08-18] MEDS ORDERED: MAGNESIUM SULFATE 2 GM/50 ML 50 ML IVPB ONE (09:30)
--- NOTE | 2016-08-18 10:44 | PN ---
Date/Time of Note Date/Time of Note DATE: 08/18/16 TIME: 10:34 Assessment/Plan VTE Prophylaxis VTE Prophylaxis Intervention: SCD's Lines/Catheters IV Catheter Type (from Nrsg): Peripheral IV Assessment/Plan Assessment/Plan 71-year-old female with: 1. Cholelithiasis, gallstone disease, and likely chronic cholecystitis per Gen Surg, POD#1 s/p Lap Aurea. No flatus yet and on po Orthostatic hypotension this AM, resolving PT, encourage ambulation once BP better Follow further recs from Dr North 2. Coronary artery disease, history of old myocardial infarction 22 years ago; however, she is very stable from the cardiac standpoint currently. Continue her beta blockers and d/c Lisinopril. Resume Aspirin when Ok with surgery. 2-D echocardiogram stable Appreciate recommendations from Dr Mcmullen 3. Hyperlipidemia. Resume atorvastatin. 4. Hypertension. Appreciate adjustments per Cardiology. On Atenolol and will hold Lisinopril for now given orthostasis. 5. Morbid obesity. Weight loss recommended. Prophylaxis: Sequential compression devices to lower extremities for deep venous thrombosis prophylaxis. Protonix for GI prophylaxis. DISPOSITION: Ambulation, monitor BP Subjective 24 Hr Interval Summary Free Text/Dictation Patient with orthostatic Hypotension this AM with dizziness. Dizziness resolved for now, getting Mag now and to get NS bolus 250 cc x 1 afterwards Still BP low D/c Lisinopril for now and holding parameter on Atenolol No flatus yet Exam/Review of Systems Vital Signs Vitals Vital Signs Date Time Temp Pulse Resp B/P Pulse Ox O2 Delivery O2 Flow Rate FiO2 08/18/16 10:09 67 86/52 08/18/16 07:59 98.2 18 97 08/18/16 04:00 Room Air 08/18/16 00:00 2.0 Intake and Output 08/17/16 08/17/16 08/18/16 15:00 23:00 07:00 Intake Total 800 ml 1350 ml 200 ml Output Total 620 ml 500 ml Balance 800 ml 730 ml -300 ml Exam Constitutional: alert, obese, oriented, well developed Respiratory: clear to auscultation, normal air movement Cardiovascular: nl pulses, regular rate and rhythm Gastrointestinal: soft, tender (minimal gas pain ) Musculoskeletal: nl extremities to inspection Extremities: normal pulses, other (no edema, clubbing or cyanosis ) Neurological: GERICARE AIDE TEACHER II-XII 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, nl mental status, nl speech, nl strength Results Result Diagram: 08/18/168 08/18/165 Results 24 hrs Laboratory Tests Test 08/18/16 04:15 08/18/16 04:18 Sodium Level 142 Potassium Level 4.4 Chloride Level 106 Carbon Dioxide Level 30 Anion Gap 10 Blood Urea Nitrogen 14 Creatinine 0.92 Glucose Level 176 Calcium Level 8.7 Total Bilirubin 0.2 Direct Bilirubin 0.00 Indirect Bilirubin 0.2 Aspartate Amino Transf (AST/SGOT) 44 Alanine Aminotransferase (ALT/SGPT) 47 Alkaline Phosphatase 71 Total Protein 6.5 Albumin 3.1 L Globulin 3.40 H Albumin/Globulin Ratio 0.91 White Blood Count 10.1 # Red Blood Count 4.39 Hemoglobin 12.7 Hematocrit 40.2 Mean Corpuscular Volume 91.6 Mean Corpuscular Hemoglobin 28.9 L Mean Corpuscular Hemoglobin Concent 31.6 L Red Cell Distribution Width 12.6 Platelet Count 276 Mean Platelet Volume 10.3 Neutrophils % 86.5 H Lymphocytes % 8.7 L Monocytes % 4.4 Eosinophils % 0.0 Basophils % 0.1 Nucleated Red Blood Cells % 0.0 Neutrophils # 8.7 H Lymphocytes # 0.9 Monocytes # 0.4 Eosinophils # 0.0 Basophils # 0.0 Nucleated Red Blood Cells # 0.0 Phosphorus Level 4.7 Magnesium Level 1.6 L Medications Medications Current Medications Morphine Sulfate (morphine) 2 mg Q3 PRN IV pain Last administered on 08/18/16 00:56; Admin Dose 2 MG; Start 08/16/16 at 07:30 Acetaminophen (Tylenol Tab) 650 mg Q6H PRN PO PAIN LEVEL 1-3 OR FEVER Last administered on 08/16/16 11:45; Admin Dose 650 MG; Start 08/16/16 at 10:00 Docusate Sodium (Colace) 100 mg Q12H PRN PO CONSTIPATION; Start 08/16/16 at 10: 00 Magnesium Hydroxide (Milk Of Mag) 30 ml DAILY PRN PO CONSTIPATION; Start at 10:00 Bisacodyl 10 mg 10 mg DAILY PRN [place] CONSTIPATION; Start 08/16/16 at 10:00 Dextrose/Sodium Chloride (D5-NS) 1,000 ml @ 100 mls/hr Q10H IV Last administered on 08/18/16 02:57; Admin Dose 100 MLS/HR; Start 08/16/16 at 10:00 Pantoprazole (Protonix Iv) 40 mg DAILY IV Last administered on 08/18/16 08:42 ; Admin Dose 40 MG; Start 08/16/16 at 10:30 Atenolol (Tenormin) 50 mg BID PO Last administered on 08/18/16 08:43; Admin Dose 50 MG; Start 08/16/16 at 12:00 Atorvastatin Calcium (Lipitor) 40 mg HS PO Last administered on 08/17/16 21:40 ; Admin Dose 40 MG; Start 08/16/16 at 21:00 Lisinopril (Zestril) 20 mg DAILY PO Last administered on 08/18/16 08:43; Admin Dose 20 MG; Start 08/17/16 at 09:00 Ondansetron HCl (Zofran Inj) 4 mg Q6H PRN IV NAUSEA AND/OR VOMITING; Start at 19:30 Acetaminophen/ Hydrocodone Bitart ([place] (5/325)) 1 tab Q6H PRN PO PAIN LEVEL 6 -10; Start 08/17/16 at 19:30 Acetaminophen/ Hydrocodone Bitart ([place] (10/325)) 1 tab Q6H PRN PO PAIN LEVEL 6-10; Start 08/17/16 at 19:30 Docusate Sodium 100 mg 100 mg BID PO Last administered on 08/18/16 08:42; Admin Dose 100 MG; Start 08/17/16 at 21:00 Magnesium Sulfate (Magnesium Sulfate 2 Gm/50 ml) 50 ml @ 25 mls/hr ONCE ONCE IVPB Last administered on 08/18/16 10:08; Admin Dose 25 MLS/HR; Start at 09:30; Stop 08/18/16 at 11:29 SEJAL GALARZA Aug 18, 2016 10:44
[2016-08-18] MEDS ORDERED: SOD CHLORIDE 0.9% 250 ML IV ONE (11:00)
[2016-08-18] MEDS: ONDANSETRON 4 MG INJ IV PRN (11:46)
[2016-08-18] MEDS: ENOXAPARIN 40 MG/0.4 ML SYG SC SCH (12:17)
[2016-08-18] MEDS: ATENOLOL 25 MG TAB PO SCH (20:29)
[2016-08-18] MEDS: ATORVASTATIN 40 MG TAB PO SCH (20:29)
[2016-08-19] MEDS: morphine 2 MG INJ IV PRN (01:33)
[2016-08-19 05:44] LABS: ADD SCAN DIFF NO
[2016-08-19 05:59] LABS: ALBUMIN 3.1 g/dl (3.3-4.9)
[2016-08-19 06:00] LABS: POTASSIUM 4.3 mmol/L (3.5-5.1)
[2016-08-19 06:00] LABS: BASOPHILS % 0.3 % (0.0-2.0); EOSINOPHILS # 0.2 10^3/ul (0.0-0.5); EOSINOPHILS % 1.9 % (0.0-7.0); HEMATOCRIT 37.9 % (37.0-47.0); HEMOGLOBIN 12.1 g/dl (12.0-16.0); LYMPHOCYTES # 1.9 10^3/ul (0.8-2.9); LYMPHOCYTES % 23.7 % (15.0-51.0); MEAN CORPUSCULAR HEMOGLOBIN 29.5 pg (29.0-33.0); MEAN CORPUSCULAR HGB CONC 31.9 g/dl (32.0-37.0); MEAN CORPUSCULAR VOLUME 92.4 fl (82.0-101.0); MEAN PLATELET VOLUME 10.7 fl (7.4-10.4); MONOCYTE # 0.9 10^3/ul (0.3-0.9); MONOCYTES % 11.4 % (0.0-11.0); NEUTROPHIL # 4.9 10^3/ul (1.6-7.5); NEUTROPHILS % 62.3 % (39.0-77.0); WHITE BLOOD COUNT 7.8 10^3/ul (4.8-10.8)
[2016-08-19 06:02] LABS: ALBUMIN/GLOBULIN RATIO 0.93; BILIRUBIN,INDIRECT 0.4 mg/dl (0-1.1); BILIRUBIN,TOTAL 0.4 mg/dl (0.2-1.3); CREATININE 1.59 mg/dl (0.44-1.00); TOTAL PROTEIN 6.4 g/dl (6.1-8.1)
[2016-08-19 06:03] LABS: CALCIUM 8.5 mg/dl (8.4-10.2)
[2016-08-19 06:12] LABS: PHOSPHORUS 4.8 mg/dl (2.5-4.9)
[2016-08-19 06:13] LABS: MAGNESIUM 2.3 mg/dl (1.7-2.5)
[2016-08-19 06:14] LABS: PLATELET COUNT 207 10^3/UL (140-415)
[2016-08-19 08:05] VITALS: BP 97/50; RESP 20
[2016-08-19] MEDS: ONDANSETRON 4 MG INJ IV PRN (08:44)
[2016-08-19] MEDS: ATENOLOL 25 MG TAB PO SCH ×2 (09:00→21:25)
[2016-08-19] MEDS: DOCUSATE SODIUM 100 MG CAP PO SCH ×2 (09:21→21:25)
[2016-08-19] MEDS: PANTOPRAZOLE 40 MG INJ IV SCH (09:21)
[2016-08-19] MEDS: ENOXAPARIN 40 MG/0.4 ML SYG SC SCH (09:28)
[2016-08-19] MEDS: SOD CHLORIDE 0.9% 1,000 ML IV SCH ×2 (12:32→23:02)
[2016-08-19 16:00] VITALS: BP 106/60; PULSE 70; RESP 18
--- NOTE | 2016-08-19 16:03 | RADRPT ---
PROCEDURE: XR Chest. CLINICAL INDICATION: shortness of breath TECHNIQUE: Single frontal view of the chest was obtained. COMPARISON: Chest x-ray from 08/16/2016 FINDINGS: There is stable mild cardiomegaly with prominence of interstitial markings, likely due to mild conge stive changes. The lungs are clear. The aortic arch is calcified. There is no significant pleural effusion or pneumothorax. IMPRESSION: Mild cardiomegaly with mild congestive changes. Aortic atherosclerosis. No focal infiltrates or effusions. RPTAT: EE Physician Nino Date Time Electronically viewed and signed by Akira Camacho Physician on 08/19/2016 16:03 /
--- NOTE | 2016-08-19 16:10 | PN ---
Date/Time of Note Date/Time of Note DATE: 08/19/16 TIME: 15:49 Assessment/Plan VTE Prophylaxis VTE Prophylaxis Intervention: LMWH Lines/Catheters IV Catheter Type (from Nrs): Peripheral IV Assessment/Plan Assessment/Plan 71-year-old female with: 1. Orthostatic hypotension resolving with decreased dose of Atenolol, continue IVF for now 2. KELLY and pre renal: Continue IVF and follow up renal function in AM 3. Cholelithiasis, gallstone disease, and likely chronic cholecystitis per Gen Surg, POD#2 s/p Lap Aurea. Tolerating po and passing gas PT, encourage ambulation Per Dr North, Ok to d/c home form surgical standpoint with outpatient follow up in 1 to 2 weeks 4. Coronary artery disease, history of old myocardial infarction 22 years ago; however, she is very stable from the cardiac standpoint currently. Continue her beta blockers and d/c Lisinopril. Resume Aspirin when Ok with surgery. 2-D echocardiogram stable Appreciate recommendations from Dr Mcmullen 5. Hyperlipidemia. Resume atorvastatin. 6. Hypertension. Appreciate adjustments per Cardiology. Lower doses of Atenolol and d/c Lisinopril for now given orthostasis. 7. Morbid obesity. Weight loss recommended. Prophylaxis: Sequential compression devices to lower extremities for deep venous thrombosis prophylaxis. Protonix for GI prophylaxis. DISPOSITION: Ambulating, monitor BP and renal function with planned d/c in AM if renal function better Subjective 24 Hr Interval Summary Free Text/Dictation Patient doing better today with one episode of dizziness this AM, since then has been OK Ambulating in hallway and tolerating po Labs OK Appreciate Dr Mcmullen and Dr North's recommendations Exam/Review of Systems Vital Signs Vitals Vital Signs Date Time Temp Pulse Resp B/P Pulse Ox O2 Delivery O2 Flow Rate FiO2 08/19/16 08:05 98.0 76 20 97/50 90 08/18/16 17:00 Nasal Cannula 08/18/16 12:42 2.0 Intake and Output 08/18/16 08/18/16 08/19/16 15:00 23:00 07:00 Intake Total 450 ml 550 ml 500 ml Balance 450 ml 550 ml 500 ml Exam Constitutional: alert, obese, oriented, well developed Respiratory: clear to auscultation, normal air movement Cardiovascular: nl pulses, regular rate and rhythm Gastrointestinal: soft, tender (incisional TTP RUQ ) Musculoskeletal: nl extremities to inspection Extremities: normal pulses, other (no edema, clubbing or cyanosis ) Neurological: JEWELRY ESTIMATOR II-XII intact, nl mental status, nl speech, nl strength Results Result Diagram: 08/19/164 08/19/165 Results 24 hrs Laboratory Tests Test 08/19/16 04:44 08/19/16 04:45 White Blood Count 7.8 # Red Blood Count 4.10 L Hemoglobin 12.1 Hematocrit 37.9 Mean Corpuscular Volume 92.4 Mean Corpuscular Hemoglobin 29.5 Mean Corpuscular Hemoglobin Concent 31.9 L Red Cell Distribution Width 13.0 Platelet Count 207 # Mean Platelet Volume 10.7 H Neutrophils % 62.3 Lymphocytes % 23.7 Monocytes % 11.4 H Eosinophils % 1.9 Basophils % 0.3 Nucleated Red Blood Cells % 0.0 Neutrophils # 4.9 Lymphocytes # 1.9 Monocytes # 0.9 Eosinophils # 0.2 Basophils # 0.0 Nucleated Red Blood Cells # 0.0 Phosphorus Level 4.8 Magnesium Level 2.3 Sodium Level 137 Potassium Level 4.3 Chloride Level 103 Carbon Dioxide Level 30 Anion Gap 8 Blood Urea Nitrogen 24 H Creatinine 1.59 H Glucose Level 109 # Calcium Level 8.5 Total Bilirubin 0.4 Direct Bilirubin 0.00 Indirect Bilirubin 0.4 Aspartate Amino Transf (AST/SGOT) 35 Alanine Aminotransferase (ALT/SGPT) 48 Alkaline Phosphatase 68 Total Protein 6.4 Albumin 3.1 L Globulin 3.30 H Albumin/Globulin Ratio 0.93 Medications Medications Current Medications Morphine Sulfate (morphine) 2 mg Q3 PRN IV pain Last administered on 08/19/16 01:33; Admin Dose 2 MG; Start 08/16/16 at 07:30 Acetaminophen (Tylenol Tab) 650 mg Q6H PRN PO PAIN LEVEL 1-3 OR FEVER Last administered on 08/16/16 11:45; Admin Dose 650 MG; Start 08/16/16 at 10:00 Docusate Sodium (Colace) 100 mg Q12H PRN PO CONSTIPATION; Start 08/16/16 at 10: 00 Magnesium Hydroxide (Milk Of Mag) 30 ml DAILY PRN PO CONSTIPATION; Start at 10:00 Bisacodyl (Dulcolax Supp) 10 mg DAILY PRN [place] CONSTIPATION; Start 08/16/16 at 10 :00 Atorvastatin Calcium (Lipitor) 40 mg HS PO Last administered on 08/18/16 20:29 ; Admin Dose 40 MG; Start 08/16/16 at 21:00 Ondansetron HCl (Zofran Inj) 4 mg Q6H PRN IV NAUSEA AND/OR VOMITING Last administered on 08/19/16 08:44; Admin Dose 4 MG; Start 08/17/16 at 19:30 Acetaminophen/ Hydrocodone Bitart ([place] (5/325)) 1 tab Q6H PRN PO PAIN LEVEL 6 -10; Start 08/17/16 at 19:30 Acetaminophen/ Hydrocodone Bitart ([place] (10/325)) 1 tab Q6H PRN PO PAIN LEVEL 6-10; Start 08/17/16 at 19:30 Docusate Sodium (Colace) 100 mg BID PO Last administered on 08/19/16 09:21; Admin Dose 100 MG; Start 08/17/16 at 21:00 Atenolol (Tenormin) 25 mg BID PO ; Start 08/18/16 at 21:00 Simethicone (Mylicon) 80 mg Q6H PRN PO DISTENSION/GAS/BLOATING Last administered on 08/18/16 20:29; Admin Dose 80 MG; Start 08/18/16 at 20:00 Enoxaparin Sodium 30 mg 30 mg DAILY SC ; Start 08/20/16 at 09:00 Sodium Chloride (NS) 1,000 ml @ 100 mls/hr Q10H IV Last administered on 12:32; Admin Dose 100 MLS/HR; Start 08/19/16 at 12:30 Pantoprazole (Protonix Tab) 40 mg DAILY@06 PO ; Start 08/20/16 at 06:00 SEJAL GALARZA Aug 19, 2016 16:06
[2016-08-19 20:00] VITALS: BP 134/64; RESP 20
[2016-08-19] MEDS: ATORVASTATIN 40 MG TAB PO SCH (21:25)
[2016-08-20] MEDS ORDERED: PANTOPRAZOLE (EC) 40 MG TAB PO SCH (06:00)
[2016-08-20 07:00] VITALS: BP 131/62; RESP 20
[2016-08-20 07:30] LABS: ALBUMIN 2.9 g/dl (3.3-4.9)
[2016-08-20 07:31] LABS: POTASSIUM 4.7 mmol/L (3.5-5.1)
[2016-08-20 07:33] LABS: BILIRUBIN,INDIRECT 0.3 mg/dl (0-1.1); BILIRUBIN,TOTAL 0.3 mg/dl (0.2-1.3); CREATININE 0.94 mg/dl (0.44-1.00)
[2016-08-20 07:34] LABS: ALBUMIN/GLOBULIN RATIO 0.96; CALCIUM 8.2 mg/dl (8.4-10.2); TOTAL PROTEIN 5.9 g/dl (6.1-8.1)
[2016-08-20] MEDS: DOCUSATE SODIUM 100 MG CAP PO SCH (08:58)
[2016-08-20] MEDS: ATENOLOL 25 MG TAB PO SCH (08:59)
[2016-08-20] MEDS ORDERED: ASPIRIN (EC) 81 MG TAB PO SCH (09:00)
[2016-08-20] MEDS ORDERED: ENOXAPARIN 30 MG/0.3 ML SYG SC SCH (09:00)
--- NOTE | 2016-08-20 09:21 | PN ---
Date/Time of Note Date/Time of Note DATE: 08/20/16 TIME: 09:14 Assessment/Plan VTE Prophylaxis VTE Prophylaxis Intervention: LMWH Lines/Catheters IV Catheter Type (from Nrs): Peripheral IV Assessment/Plan Assessment/Plan 71-year-old female with: 1. Orthostatic hypotension resolved. Renal function back to normal, d/c IVF and D/c home back on home dosing of BP meds. 2. KELLY and pre renal: Resolved. Renal function back to normal today. 3. Cholelithiasis, gallstone disease, and likely chronic cholecystitis per Gen Surg, POD#3 s/p Lap Aurea. Passing gas, tolerating regular diet but prefers soups Ambulating well Per Dr North, Raj to d/c home from surgical standpoint with outpatient follow up in 1 to 2 weeks 4. Coronary artery disease, history of old myocardial infarction 22 years ago; however, she is very stable from the cardiac standpoint currently. Continue her beta blockers and d/c Lisinopril. Ok to resume ASA per Dr North. 2-D echocardiogram stable Appreciate recommendations from Dr Mcmullen 5. Hyperlipidemia. Resume atorvastatin. 6. Hypertension. Resume home meds on discharge today. 7. Morbid obesity. Weight loss recommended. Prophylaxis: Sequential compression devices to lower extremities for deep venous thrombosis prophylaxis. Protonix for GI prophylaxis. DISPOSITION: D/c home today with PCP follow up and F/u with Dr North in 1 to 2 weeks. Subjective 24 Hr Interval Summary Free Text/Dictation Patient doing well, VSS and BP back to baseline No complaints today On RA and renal function back to normal D/c home today Exam/Review of Systems Vital Signs Vitals Vital Signs Date Time Temp Pulse Resp B/P Pulse Ox O2 Delivery O2 Flow Rate FiO2 08/20/16 07:00 98.5 83 20 131/62 98 08/19/16 16:00 Room Air 08/18/16 12:42 2.0 Intake and Output 08/19/16 08/19/16 08/20/16 15:00 23:00 07:00 Intake Total 1800 ml 950 ml Output Total 1100 ml 650 ml Balance 700 ml 300 ml Exam Constitutional: alert, obese, oriented, well developed Respiratory: clear to auscultation, normal air movement Cardiovascular: nl pulses, regular rate and rhythm Gastrointestinal: non-tender, soft Musculoskeletal: nl extremities to inspection Extremities: normal pulses, other (no edema, clubbing or cyanosis ) Neurological: BELL HOLE DIGGER II-XII intact, nl mental status, nl speech, nl strength Results Result Diagram: 08/19/16 0444 08/20/16 0511 Results 24 hrs Laboratory Tests Test 08/20/16 05:11 Sodium Level 138 Potassium Level 4.7 Chloride Level 108 Carbon Dioxide Level 28 Anion Gap 7 L Blood Urea Nitrogen 17 Creatinine 0.94 Glucose Level 107 Calcium Level 8.2 L Total Bilirubin 0.3 Direct Bilirubin 0.00 Indirect Bilirubin 0.3 Aspartate Amino Transf (AST/SGOT) 27 Alanine Aminotransferase (ALT/SGPT) 39 Alkaline Phosphatase 65 Total Protein 5.9 L Albumin 2.9 L Globulin 3.00 Albumin/Globulin Ratio 0.96 Medications Medications Current Medications Morphine Sulfate (morphine) 2 mg Q3 PRN IV pain Last administered on 08/19/16 01:33; Admin Dose 2 MG; Start 08/16/16 at 07:30 Acetaminophen (Tylenol Tab) 650 mg Q6H PRN PO PAIN LEVEL 1-3 OR FEVER Last administered on 08/16/16 11:45; Admin Dose 650 MG; Start 08/16/16 at 10:00 Docusate Sodium (Colace) 100 mg Q12H PRN PO CONSTIPATION; Start 08/16/16 at 10: 00 Magnesium Hydroxide (Milk Of Mag) 30 ml DAILY PRN PO CONSTIPATION Last administered on 08/20/16 05:32; Admin Dose 30 ML; Start 08/16/16 at 10:00 Bisacodyl (Dulcolax Supp) 10 mg DAILY PRN [place] CONSTIPATION; Start 08/16/16 at 10 :00 Atorvastatin Calcium (Lipitor) 40 mg HS PO Last administered on 08/19/16 21:25 ; Admin Dose 40 MG; Start 08/16/16 at 21:00 Ondansetron HCl (Zofran Inj) 4 mg Q6H PRN IV NAUSEA AND/OR VOMITING Last administered on 08/19/16 08:44; Admin Dose 4 MG; Start 08/17/16 at 19:30 Acetaminophen/ Hydrocodone Bitart ([place] (5/325)) 1 tab Q6H PRN PO PAIN LEVEL 6 -10; Start 08/17/16 at 19:30 Acetaminophen/ Hydrocodone Bitart ([place] (10/325)) 1 tab Q6H PRN PO PAIN LEVEL 6-10; Start 08/17/16 at 19:30 Docusate Sodium (Colace) 100 mg BID PO Last administered on 08/20/16 08:58; Admin Dose 100 MG; Start 08/17/16 at 21:00 Atenolol (Tenormin) 25 mg BID PO Last administered on 08/20/16 08:59; Admin Dose 25 MG; Start 08/18/16 at 21:00 Simethicone (Mylicon) 80 mg Q6H PRN PO DISTENSION/GAS/BLOATING Last administered on 08/18/16 20:29; Admin Dose 80 MG; Start 08/18/16 at 20:00 Enoxaparin Sodium (Lovenox) 30 mg DAILY SC Last administered on 08/20/16 09:02 ; Admin Dose 30 MG; Start 08/20/16 at 09:00 Pantoprazole (Protonix Tab) 40 mg DAILY@06 PO Last administered on 08/20/16 05: 32; Admin Dose 40 MG; Start 08/20/16 at 06:00 Aspirin (Halfprin) 81 mg DAILY PO Last administered on 08/20/16 08:58; Admin Dose 81 MG; Start 08/20/16 at 09:00 SEJAL GALARZA Aug 20, 2016 09:20
--- NOTE | 2016-08-20 09:23 | PDOCDIS ---
Discharge Instructions CONDITION Patient Condition: Good HOME CARE INSTRUCTIONS: Special Diet: low cholesterol low fat ACTIVITY: Activity Restrictions: No Restrictions FOLLOW UP/APPOINTMENTS Appointments Follow up with PCP within 1 week Follow up with Dr North within 1 to 2 weeks SEJAL GALARZA Aug 20, 2016 09:23
[2016-08-20] MEDS ORDERED: HYDR-3498 PO (09:24)
[2016-08-20] MEDS ORDERED: DOCU-216 PO (09:24)
--- NOTE | 2016-08-20 11:55 | DS ---
DATE OF ADMISSION: 08/16/2016 DATE OF DISCHARGE: 08/20/2016 CONSULTANTS DURING THIS ADMISSION: Dr. Mariano North from general surgery and Dr. Mcmullen from [facility]. BRIEF HISTORY OF PRESENTING ILLNESS: This is 71-year-old female with history of gallstone disease d iagnosed approximately 1 year ago, coronary artery disease, hypertension, hyperlipidemia, morbid obe sity, who presented to the emergency department with 3 days of worsening right upper quadrant pain. She was diagnosed on gallbladder ultrasound and clinically with probable chronic cholecystitis. Th e patient was admitted to a medical/surgical bed for laparoscopic cholecystectomy. HOSPITAL COURSE: The patient was evaluated by Dr. Mcmullen. She is known to have coronary artery dis ease, had seen Dr. Mcmullen before. She was cleared by cardiology and proceeded with a laparoscopic c holecystectomy. Postoperatively, her stay has been fairly uneventful except for episode of hypotens ion likely secondary to blood pressure medication. Her blood pressure medication was held. She was given boluses of IV fluids and has recovered very well with no sequelae. The patient's blood press ure is back to baseline. She is restarted on beta blockers. I have advised for her to stay off hyd rochlorothiazide for now. Her pain is controlled. White blood cell count within normal. LFTs with in normal. Renal function is normal. She is ambulating in the hallway on room air. She has some m ild incisional pain, well controlled with [place]. She is having bowel movements, tolerating p.o. Th erefore, she will be discharged home today with outpatient followup with primary care physician and Dr. North. DISPOSITION: Discharge home. DISCHARGE CONDITION: Stable. DISCHARGE DIET: Cardiac diet. DISCHARGE ACTIVITY: Resume home activity as tolerated, avoiding heavy lifting. FOLLOWUP: 1. The patient is to follow up with her primary care physician within 1 week. 2. Follow up with Dr. Mariano North in 1 to 2 weeks. DISCHARGE DIAGNOSES: 1. Status post laparoscopic cholecystectomy, postoperative day #2 for chronic cholecystitis and gal lstone disease. 2. Coronary artery disease, stable. 3. Hyperlipidemia. 4. Hypertension. 5. Morbid obesity. 6. Acute kidney injury, resolved. 7. Orthostatic hypotension, resolved. DISCHARGE MEDICATIONS 1. Colace 100 mg p.o. b.i.d. 2. [place] 5/325 one tab p.o. q. 8 hours p.r.n. pain. 3. Aspirin 81 mg p.o. daily. 4. Atenolol 50 mg p.o. daily. 5. Atorvastatin 40 mg p.o. daily. 6. Captopril 25 mg p.o. daily. DISCONTINUED MEDICATION: Hydrochlorothiazide 12.5 mg p.o. daily. Dictated By: SEJAL WALTERS/NORAMN Conf#: [id number] DID#: [id number] CC: SHAHRZAD VALENTIN MD; HERLINDA MCMULLEN MD; MARIANO NORTH MD;*EndCC*
--- NOTE | 2016-08-20 13:31 | PN ---
DATE: 08/19/2016 CARDIOLOGY FOLLOWUP SUBJECTIVE: Discussed with the staff. The patient said that yesterday she became diaphoretic and w eak after she ate. She said after she eats she gets abdominal pain and feels like she is going to p ass out. No chest pain or pressure. No palpitation. ____ was low yesterday, currently improved. MEDICATIONS: Reviewed. OBJECTIVE: VITAL SIGNS: Temperature 98, heart rate of 76, blood pressure 97/50, respiration rate of 20, satura ting 95%. HEENT: Normocephalic, atraumatic. Obese female. Pupils are equal. CARDIOVASCULAR: Regular rate and rhythm, systolic murmur. PULMONARY: With no wheezes. GASTROINTESTINAL: Soft, positive tender to palpation. No rebound or guarding. EXTREMITIES: Trivial edema. NEUROLOGIC: Awake, alert. PSYCHIATRIC: Calm and pleasant. LABORATORY: WBC of 7.8, hemoglobin 12.1, platelets 207. Sodium 137, potassium 4.3, BUN of 24, crea tinine 1.59, glucose 109. ASSESSMENT AND PLAN: 1. Cardiovascular preoperative evaluation. 2. Cholelithiasis. 3. Hypertension with current episode of hypotension. 4. Coronary artery disease. 5. Dyslipidemia. RECOMMENDATIONS: Atenolol has been decreasing with holding parameters. ____ has been discontinued. Continue postop care. No further cardiac recommendation. We will up p.r.n. Dictated By: HERLINDA GONG MD AV/NORMAN Conf#: [id number] DID#: [id number] CC: SEJAL GALARZA MD;*[facility]*
== END 2016-08-20 14:50 | disposition home or self-care (01) | DRG 418 ==
LOC: E/R 22:59 → MS1 08-16 02:12
PROVIDERS: ADMIT Internal Medicine; ATTEND Internal Medicine
PROC: 0FT44ZZ Resection of Gallbladder, Percutaneous Endoscopic Approach (ICD-10-PCS; principal; 2016-08-16)
DX: K80.10 Calculus of gallbladder with chronic cholecystitis without obstruction (principal); N17.9 Acute kidney failure, unspecified; E66.01 Morbid (severe) obesity due to excess calories; K76.0 Fatty (change of) liver, not elsewhere classified; I25.10 Atherosclerotic heart disease of native coronary artery without angina pectoris; I25.2 Old myocardial infarction; E78.5 Hyperlipidemia, unspecified; I10 Essential (primary) hypertension; I95.1 Orthostatic hypotension; T46.5X5A Adverse effect of other antihypertensive drugs, initial encounter; Y92.230 Patient room in hospital as the place of occurrence of the external cause; Z96.651 Presence of right artificial knee joint; Z68.34 Body mass index [BMI] 34.0-34.9, adult; Z95.5 Presence of coronary angioplasty implant and graft
CPT/HCPCS: 71010; 76705; 80053; 80061; 81003; 82150; 83690; 83735; 84100; 85025; 85610; 85730; 88304; 90686; 93005; 93306; 96374; 96375; 97162; C9113; J0360; J1100; J1650; J2270; J2370; J2405; J2543; J2710; J2795; J3010; J3475; J7030; J7040; J7042